=== PATIENT | female | born 1950 | race Caucasian/White ===

== ENCOUNTER 2021-05-03 05:26 | Inpatient (IN) ==
[2021-05-03] MEDS ORDERED: Naloxone 0.4 MG/ML INJ IVP PRN (12:10)
[2021-05-03] MEDS ORDERED: *HR* HYDROcodone/Acet 5/325 mg TABLET PO PRN ×2 (12:10→12:33)
[2021-05-03] MEDS ORDERED: *HR* Phytonadione 5 MG TABLET PO ONE (13:53)
[2021-05-03] MEDS: Morphine Sulfate 2 MG/ML SYRINGE IVP ONE ×2 (21:35→22:56)
[2021-05-03] MEDS ORDERED: Ketorolac 30 MG/ML VIAL IVP ONE (22:31)
[2021-05-04] MEDS: *HR* OxyCODONE/APAP 5/325 TABLET PO PRN ×2 (02:07→19:54)
[2021-05-04] MEDS ORDERED: Acetaminophen IV 1,000 MG/100 ML BAG IVPB ONE (05:13)
[2021-05-04 05:19] LABS: Basophils # 0.1 K/mcL (0.0-0.2); Basophils % 0.5 %; Eosinophils # 0.3 K/mcL (0.0-0.6); Eosinophils % 3.6 %; Hematocrit 31.8 % (35.3-44.9); Hemoglobin 10.3 g/dL (11.5-15.4); Immature Granulocytes % 0.3 % (0-4); Lymphocytes % 21.7 %; Mean Corpuscular HGB Conc 32.4 g/dL (31.6-35.5); Mean Corpuscular Hemoglobin 29.6 pg (28.0-33.3); Mean Corpuscular Volume 91.4 fL (83.0-100.0); Monocytes % 10.2 %; Neutrophils # 5.9 K/mcL (1.6-8.9); Platelet Count 229 K/mcL (140-400); Red Blood Count 3.48 M/mcL (3.82-4.97); Red Cell Distribution Width 14.8 % (11.5-14.5); Segmented Neutrophils % 63.7 %; White Blood Count 9.3 K/mcL (4.3-11.1)
[2021-05-04 05:33] LABS: INR 4.7; Prothrombin Time 52.1 Seconds (9.4-12.1)
[2021-05-04 05:43] LABS: BUN/Creatinine Ratio 11 (6-26); Blood Urea Nitrogen 11 mg/dL (8-23); Calcium 8.8 mg/dL (8.6-10.3); Carbon Dioxide 24 mEq/L (23-29); Chloride 101 mEq/L (98-107); Glucose 91 mg/dL (70-105); Osmolality,Calculated 275 (280-300); Sodium 133 mEq/L (136-145); eGFR For African Americans > 60 (> 60); eGFR For Non-African Americans 57 (> 60)
[2021-05-04 09:53] LABS: Albumin 3.5 g/dL (3.5-5.7); Albumin/Globulin Ratio 1.4 (1.1-2.2); Bilirubin,Direct 0.2 mg/dL (0.0-0.2); Bilirubin,Indirect 0.6 mg/dL (0.0-1.0); Bilirubin,Total 0.8 mg/dL (0.3-1.0); Globulin 2.5 g/dL (2.4-3.5)
[2021-05-04 09:56] LABS: INR 4.5; Prothrombin Time 49.4 Seconds (9.4-12.1)
[2021-05-04] MEDS: Acetaminophen IV 1,000 MG/100 ML BAG IVPB SCH ×2 (11:54→22:51)
[2021-05-04] MEDS ORDERED: traZODone 50 MG TABLET PO PRN (19:29)
[2021-05-04] MEDS: Gabapentin 100 MG CAPSULE PO SCH (22:52)
[2021-05-04] MEDS ORDERED: Morphine Sulfate 2 MG/ML SYRINGE IVP ONE (23:24)
[2021-05-05 02:06] LABS: Hematocrit 31.4 % (35.3-44.9); Hemoglobin 9.9 g/dL (11.5-15.4); Mean Corpuscular HGB Conc 31.5 g/dL (31.6-35.5); Mean Corpuscular Hemoglobin 28.9 pg (28.0-33.3); Mean Corpuscular Volume 91.8 fL (83.0-100.0); Mean Platelet Volume 9.2 fL (9.4-12.4); Platelet Count 265 K/mcL (140-400); Red Blood Count 3.42 M/mcL (3.82-4.97); Red Cell Distribution Width 14.6 % (11.5-14.5); White Blood Count 10.8 K/mcL (4.3-11.1)
[2021-05-05 02:23] LABS: Prothrombin Time 20.1 Seconds (9.4-12.1)
[2021-05-05 02:24] LABS: INR 1.8
[2021-05-05 02:27] LABS: % Iron Saturation 9 % (15-50); BUN/Creatinine Ratio 16 (6-26); Blood Urea Nitrogen 16 mg/dL (8-23); Calcium 8.6 mg/dL (8.6-10.3); Carbon Dioxide 25 mEq/L (23-29); Chloride 99 mEq/L (98-107); Glucose 139 mg/dL (70-105); Iron 27 mcg/dL (50-170); Magnesium 1.7 mg/dL (1.6-2.6); Osmolality,Calculated 273 (280-300); Phosphorous 3.2 mg/dL (2.7-4.5); Potassium 3.8 mEq/L (3.5-5.1); Sodium 130 mEq/L (136-145); Transferrin 207 mg/dL (203-362); eGFR For African Americans > 60 (> 60); eGFR For Non-African Americans 55 (> 60)
[2021-05-05 02:44] LABS: Ferritin 52 ng/mL (10-120)
[2021-05-05 02:50] LABS: Folate 9.5 ng/mL (3.0-16.0)
[2021-05-05] MEDS: Acetaminophen IV 1,000 MG/100 ML BAG IVPB SCH ×3 (06:39→23:35)
[2021-05-05] MEDS ORDERED: Iron Sucrose Complex 400 MG in 0.9 % Sodium Chloride 250 ML IVPB ONE (08:10)
[2021-05-05] MEDS ORDERED: Primidone 50 MG TABLET PO SCH (09:00)
[2021-05-05] MEDS ORDERED: BuPROPion XL (24 HR) 150 MG TABLET PO SCH (09:00)
[2021-05-05] MEDS: *HR* OxyCODONE/APAP 5/325 TABLET PO PRN ×2 (09:36→21:52)
[2021-05-05] MEDS: Gabapentin 100 MG CAPSULE PO SCH ×2 (09:36→17:53)
[2021-05-05] MEDS ORDERED: Bupivacaine/EPI 1:200k 0.25% 50 ML VIAL ONE (16:53)
[2021-05-05] MEDS ORDERED: Lidocaine -MPF 2% 2 ML VIAL ONE (17:09)
[2021-05-05] MEDS ORDERED: *HR* Succinylcholine 200 MG/10 ML VIAL IVP ONE (17:09)
[2021-05-05] MEDS ORDERED: Lidocaine HCL 4 ML Topical Solution (Laryng-O-Jet Kit Sterile Pak) TP ONE (17:09)
[2021-05-05] MEDS ORDERED: Ondansetron 4 MG/2 ML VIAL ONE (17:09)
[2021-05-05] MEDS ORDERED: *HR* FentaNYL (PF) 100 MCG/2 ML VIAL ONE ×2 (17:10→18:54)
[2021-05-05] MEDS ORDERED: *HR* Propofol 200 MG/20 ML VIAL IVP ONE (17:10)
[2021-05-05] MEDS ORDERED: ROPIVACAINE/PF/NS 0.25% 1 EACH SYRINGE INTRAART ONE (17:22)
[2021-05-05] MEDS ORDERED: ceFAZolin 3,000 MG in Water for inj. (sterile) 30 ML IVP ONE (18:05)
[2021-05-05] MEDS ORDERED: *HR* HYDROMORPHONE 2 MG/ML VIAL ONE (19:30)
[2021-05-05] MEDS ORDERED: Ondansetron 4 MG/2 ML VIAL IVP PRN ×2 (19:55→21:50)
[2021-05-05] MEDS ORDERED: *HR* HYDROmorphone PF 0.5 MG/0.5 ML SYRINGE IVP PRN (19:55)
[2021-05-05 19:59] LABS: Adenovirus Not Detected (Not Detect); Bordetella Pertussis Not Detected (Not Detect); Chlamydophila pneumoniae Not Detected (Not Detect); Coronavirus 229E Not Detected (Not Detect); Coronavirus HKU1 Not Detected (Not Detect); Coronavirus NL63 Not Detected (Not Detect); Coronavirus OC43 Not Detected (Not Detect); Human Metapneumovirus Not Detected (Not Detect); Human Rhinovirus/Enterovirus Not Detected (Not Detect); Influenza A Subtype 2009 H1 Not Detected (Not Detect); Influenza B Not Detected (Not Detect); Mycoplasma pneumoniae Not Detected (Not Detect); Parainfluenza Virus 1 Not Detected (Not Detect); Parainfluenza Virus 2 Not Detected (Not Detect); Parainfluenza Virus 3 Not Detected (Not Detect); Parainfluenza Virus 4 Not Detected (Not Detect); Respiratory Syncytial Virus Not Detected (Not Detect); SARS-CoV-2 Not Detected (Not Detect)
[2021-05-05] MEDS ORDERED: traZODone 50 MG TABLET PO PRN (21:18)
[2021-05-05] MEDS ORDERED: Naloxone 0.4 MG/ML INJ IVP PRN (21:18)
[2021-05-05] MEDS ORDERED: Ondansetron 4 MG/2 ML VIAL IVP SCH (21:48)
[2021-05-05] MEDS: Melatonin 3 MG TABLET PO SCH (23:57)
[2021-05-06] MEDS: *HR* OxyCODONE/APAP 5/325 TABLET PO PRN ×3 (05:00→18:06)
[2021-05-06 05:16] LABS: Hematocrit 31.2 % (35.3-44.9); Hemoglobin 9.9 g/dL (11.5-15.4); Mean Corpuscular HGB Conc 31.7 g/dL (31.6-35.5); Mean Corpuscular Hemoglobin 28.9 pg (28.0-33.3); Mean Corpuscular Volume 91.2 fL (83.0-100.0); Mean Platelet Volume 9.1 fL (9.4-12.4); Platelet Count 266 K/mcL (140-400); Red Blood Count 3.42 M/mcL (3.82-4.97); Red Cell Distribution Width 14.6 % (11.5-14.5); White Blood Count 6.3 K/mcL (4.3-11.1)
[2021-05-06 07:08] LABS: BUN/Creatinine Ratio 19 (6-26); Blood Urea Nitrogen 16 mg/dL (8-23); Calcium 9.1 mg/dL (8.6-10.3); Carbon Dioxide 24 mEq/L (23-29); Chloride 97 mEq/L (98-107); Glucose 156 mg/dL (70-105); Magnesium 1.9 mg/dL (1.6-2.6); Osmolality,Calculated 270 (280-300); Phosphorous 3.7 mg/dL (2.7-4.5); Sodium 128 mEq/L (136-145); eGFR For African Americans > 60 (> 60); eGFR For Non-African Americans > 60 (> 60)
[2021-05-06] MEDS: ceFAZolin 2,000 MG in 0.9 % Sodium Chloride 100 ML IVPB SCH ×2 (08:05→16:18)
[2021-05-06] MEDS: Acetaminophen IV 1,000 MG/100 ML BAG IVPB SCH ×2 (08:05→15:51)
[2021-05-06] MEDS: Gabapentin 100 MG CAPSULE PO SCH ×3 (08:08→19:40)
[2021-05-06] MEDS: Primidone 50 MG TABLET PO SCH (08:08)
[2021-05-06] MEDS: Multivit/Ca/Min/Fe/FA 1 TAB TABLET PO SCH (08:08)
[2021-05-06] MEDS: BuPROPion XL (24 HR) 150 MG TABLET PO SCH (08:09)
[2021-05-06] MEDS ORDERED: Multivit/Ca/Min/Fe/FA 1 TAB TABLET PO SCH (09:00)
[2021-05-06] MEDS: *HR* Rivaroxaban 10 MG TABLET PO SCH (16:18)
[2021-05-06] MEDS: Melatonin 3 MG TABLET PO SCH (19:40)
[2021-05-06] MEDS ORDERED: Ondansetron 4 MG/2 ML VIAL IVP SCH (21:30)
[2021-05-07] MEDS: *HR* OxyCODONE/APAP 5/325 TABLET PO PRN ×3 (02:00→16:39)
[2021-05-07] MEDS: Acetaminophen IV 1,000 MG/100 ML BAG IVPB SCH ×2 (02:06→08:52)
[2021-05-07 03:40] LABS: Hematocrit 29.5 % (35.3-44.9); Hemoglobin 9.2 g/dL (11.5-15.4); Mean Corpuscular HGB Conc 31.2 g/dL (31.6-35.5); Mean Corpuscular Hemoglobin 28.7 pg (28.0-33.3); Mean Corpuscular Volume 91.9 fL (83.0-100.0); Mean Platelet Volume 9.5 fL (9.4-12.4); Platelet Count 307 K/mcL (140-400); Red Blood Count 3.21 M/mcL (3.82-4.97); Red Cell Distribution Width 14.6 % (11.5-14.5); White Blood Count 10.1 K/mcL (4.3-11.1)
[2021-05-07 03:59] LABS: BUN/Creatinine Ratio 22 (6-26); Blood Urea Nitrogen 19 mg/dL (8-23); Calcium 8.7 mg/dL (8.6-10.3); Carbon Dioxide 25 mEq/L (23-29); Chloride 97 mEq/L (98-107); Glucose 94 mg/dL (70-105); Magnesium 1.8 mg/dL (1.6-2.6); Osmolality,Calculated 268 (280-300); Phosphorous 2.9 mg/dL (2.7-4.5); Potassium 4.3 mEq/L (3.5-5.1); Sodium 128 mEq/L (136-145); eGFR For African Americans > 60 (> 60); eGFR For Non-African Americans > 60 (> 60)
[2021-05-07] MEDS: Multivit/Ca/Min/Fe/FA 1 TAB TABLET PO SCH (08:53)
[2021-05-07] MEDS: Gabapentin 100 MG CAPSULE PO SCH ×2 (08:54→16:39)
[2021-05-07] MEDS: BuPROPion XL (24 HR) 150 MG TABLET PO SCH (08:54)
[2021-05-07] MEDS: Primidone 50 MG TABLET PO SCH (08:54)
[2021-05-07 10:52] VITALS: BP 99/64
[2021-05-07] MEDS: *HR* Rivaroxaban 10 MG TABLET PO SCH (16:43)
== END 2021-05-07 17:59 | DRG 493 ==
LOC: 3NENU → SUATTDRO 11:19
PROVIDERS: ADMIT Family Medicine; ATTEND Family Medicine